=== PATIENT | female | born 1935 | race Caucasian/White ===

== ENCOUNTER 2018-06-17 05:33 | Day surgery (SDC) | payer OTHER ==
[~2018-06-17] VITALS: Ht 162.6 cm; Wt 64.8 kg
--- NOTE | ~2018-06-17 | O ---
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 PROCEDURE: Bilateral lower lid ectropion repair with left transconjunctival lower lid and cheek lift. SURGEON: Lee Austin M.D. DYNAMICIST: None. ANESTHESIA: MAC. COMPLICATIONS: None. 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 She presents today for a bilateral lower lid ectropion repair combined with a transconjunctival left lower lid and cheek lift in order to improve her visual function, level of comfort and corneal surface. Informed consent was obtained to include but not limited to the potential risk for loss of vision, bleeding, infection, failure to improve the problem, the potential need for further surgery or treatment. DESCRIPTION OF PROCEDURE: The patient was taken to the operating room where 2% Xylocaine with epinephrine mixed with equal parts of 0.75% Marcaine with Wydase was administered transcutaneously and transconjunctivally to each lower lid and lateral canthus. In addition, on the left side, the left cheek and the left infratemporal fossa were anesthetized. The patient was subsequently prepped and draped in the usual sterile fashion. A Bren clamp was then used to clamp the left lateral canthus following which a sharp canthotomy and cantholysis was performed. Hemostasis was re-achieved with diligent pinpoint monopolar cautery as it was throughout the case. A tarsal strip was then prepared laterally removing the lash bearing portion of the redundant lid margin and the redundant [address] [address] OPERATIVE REPORT Name: MIKYSHANTEL R Room #: 150-12 [facility]#: [id number] Admission: 06/17/18 ������������������ Attend Phys: Lee Austin MD Discharge: ������������������ Date of : 35 Report #: [id number] tarsal plate. Hemostasis was then re-achieved. A transconjunctival incision was made below the inferior border of the tarsal plate across the width of the lid. Hemostasis was then re-achieved. That dissection was then carried down into the premalar spaces primarily using sharp dissection. The lower lid and cheek were then elevated and resuspended as a unit with interrupted 5-0 chromic sutures. The lower lid and cheek lifted well. Attention was then turned to completion of the left lower lid ectropion repair. The tarsal strip was resecured to the internal portion of the lateral orbital tubercle with interrupted 5-0 Prolene sutures. The subcutaneous structures and the skin were then closed with interrupted 6-0 plain gut sutures. The right lateral canthus was then clamped with a Bren clamp. A sharp canthotomy and cantholysis was then performed. A tarsal strip was then prepared laterally removing the lash bearing portion of the redundant lid margin and the redundant tarsal plate. Hemostasis was then re-achieved. The tarsal plate was then resuspended to the internal portion of the lateral orbital tubercle with interrupted 5-0 Prolene sutures. The subcutaneous structures and the skin were then closed with interrupted 6-0 plain gut sutures. The wounds were then cleaned and dressed with bacitracin ophthalmic ointment and the patient was subsequently transported to the recovery area having tolerated the procedures well with no anesthetic or operative complications being noted. ��������������������������������������������� ���������������������������������������� By: ��������������������������������������������� [id number] Lee Austin MD /nt
[~2018-06-17 05:33] MED LIST: ASPIR 8181 MG PO; CALCIUM500 MG PO; FLEXERIL PO; LIPITOR80 MG PO; LISINOPRIL20 MG PO; LUNESTA3 MG PO; PLAVIX 75 MG TA75 M1 PO; REGLAN 5 MG TAB5 MG PO; TRAMADOL 50 MG50 MG PO; VITAMIN D32000 UNI1 PO; WELLBUTRIN XL150 MG PO; WELLBUTRIN XL300 MG PO
[2018-06-17 08:35] VITALS: BP 138/73
== END 2018-06-17 11:15 | disposition home or self-care (01) ==
LOC: OR 05:33 → TBA 05:33 → OR 11:15
DX: H02.105 Unspecified ectropion of left lower eyelid (principal); H02.102 Unspecified ectropion of right lower eyelid; H02.535 Eyelid retraction left lower eyelid; H02.205 Unspecified lagophthalmos left lower eyelid; H18.9 Unspecified disorder of cornea; F32.9 Major depressive disorder, single episode, unspecified; F41.9 Anxiety disorder, unspecified; I10 Essential (primary) hypertension; E78.00 Pure hypercholesterolemia, unspecified; K21.9 Gastro-esophageal reflux disease without esophagitis; M19.90 Unspecified osteoarthritis, unspecified site; Z85.528 Personal history of other malignant neoplasm of kidney; Z86.73 Personal history of transient ischemic attack (TIA), and cerebral infarction without residual deficits; Z87.891 Personal history of nicotine dependence; Z98.890 Other specified postprocedural states; Z79.899 Other long term (current) drug therapy; Z88.0 Allergy status to penicillin; Z88.8 Allergy status to other drugs, medicaments and biological substances; Z79.82 Long term (current) use of aspirin
CPT/HCPCS: 50010; 50101; 50386; 50398; 51636; 56527; 56531